=== PATIENT | female | born 1955 | race Caucasian/White ===

== ENCOUNTER 2023-06-01 15:01 | Inpatient (IN) | payer MEDICARE, OTHER, SELFPAY ==
[2023-05-30 15:13] VITALS: BP 182/75
--- NOTE | 2023-05-30 17:20 | ED.GENMED ---
History of Present Illness
General
Chief Complaint: Vascular Access Problem
Source: patient
Exam Limitations: none
Time Seen by Provider: 05/30/23 16:57
Travel History
Have you had any contact with someone who has COVID-19?: No
Do you have any symptoms of coronavirus? Fever > 100 degrees, chills, cough, shortness of breath, sore throat, loss of taste or smell, muscle aches, or headache?: No
History of Present Illness
History of Present Illness:
67-year-old female anticoagulated on Coumadin typically Tuesday dialysis patient. Last dialysis session was . She went Tuesday and the fistula in the arm kept clotting. She was advised to return to the facility today
which she did in the morning and the fistula clotted again. She went to a outpatient facility where they did an angioplasty and sent her back to dialysis unfortunately they were not able to get the fistula to function at that time and she was sent
here for potential temporary catheter placement. She denies chest pain fever shortness of breath. No other complaints at this time
Past History
Past History
ED Past Medical History: Cancer (Kidney cancer), NIDDM (Kidney cyst ) and Other (DVT , DVT, nephrectomy due to kidney cancer)
ED Past Surgical History: Cholecystectomy (Open ) and Other (Left nephrectomy )
Social History
Tobacco: Non-smoker
Alcohol: None
Drug: None
Personal:
Living: with family
Employment: Employed
Family History
Family History: Hypertension
Phy Exam
Physical Exam
Physical Exam:
General: Well-appearing female no acute respiratory distress
HEENT: Normocephalic atraumatic neck is supple
Heart: Regular rate and rhythm no murmurs
Lungs: Clear to auscultation bilaterally no wheezing
Extremities: No cyanosis or edema
Course
Orders/Labs/Results
Orders:
Orders
05/30/23 17:38
Complete Blood Count/With Diff Urgent
Comprehensive Metabolic Panel Urgent
Prothrombin Time Urgent
Abnormal Lab Results
05/30/23
17:38
RBC 3.24 L 10^6/uL
(4.20-5.40)
Hgb 11.3 L g/dL
(12.0-16.0)
Hct 32.9 L %
(37.0-47.0)
MCV 101.5 H fL
(81.0-99.0)
MCH 34.9 H pg
(27.0-31.0)
RDW 15.2 H %
(11.5-14.5)
Absolute Monos (auto) 0.7 H 10^3/uL
(0.1-0.6)
Monocytes % 12.9 H %
(1.7-9.3)
Eosinophils % 6.7 H %
(0-6)
PT 28.7 H Sec
(11.4-14.6)
Carbon Dioxide 19 L mmol/L
(22-30)
BUN 84 H mg/dl
(7-17)
Creatinine 7.0 H* mg/dL
(0.6-1.0)
Glucose 124 H mg/dl
(70-99)
05/30/23 17:38
05/30/23 17:38
Vital Signs
Initial and Last Documented VS:
Initial Vital Signs
Temp Pulse Resp BP Pulse Ox
98.1 F 68 18 182/75 100
05/30/23 15:13 05/30/23 15:13 05/30/23 15:13 05/30/23 15:13 05/30/23 15:13
Last Documented Vital Signs
Temp Pulse Resp BP Pulse Ox
98.1 F 67 20 153/68 97
05/30/23 15:13 05/30/23 18:14 05/30/23 18:14 05/30/23 18:14 05/30/23 18:14
MDM/Problems Addressed
Differential Diagnosis Includes:
Malfunctioning dialysis fistula left upper extremity sent here for catheter placement and dialysis to be performed here. Have labs pending. Contacted interventional radiology. Will wait for labs to return
*Critical Care Note
Total Time (30-74mins, 75-104mins- exclusive of procedures): Not Applicable
Update Note
Update Note:
Discussed case with interventional radiology he prefers to wait till the morning to place temporary dialysis catheter. Potassium today is 4.7 with a creatinine of 7.0. Patient does not appear to be significantly overloaded on exam. Nephrology
made aware and are in agreement with dialysis for tomorrow after catheter placement. Admitted to hospitalist service
ED Attending Note
-
Portions of this chart may have been created with voice recognition software.� Occasional wrong word or��sound alike� substitutions may have occurred due to the inherent limitations of voice recognition software.
Discharge Plan
Departure
Patient Disposition: Admit
Date of Disposition: 05/30/23
Time of Disposition: 18:30
Admit to: Med/Surg
Presentation/result/management discussed w/ accepting MD/DO: Hospitalist
Discharge Problem:
dialysis catheter malfunction
Prescriptions:
No Action
warfarin [Jantoven] 5 MG tablet
5 mg PO MOWEFR
calcitriol 0.25 MCG capsule
0.25 mcg PO DAILY
atorvastatin [Lipitor] 20 mg Tablet
20 mg PO DAILY
warfarin 2.5 mg Tablet
2.5 mg PO SUTUTHSA
Theragen Tablet
1 tab PO DAILY Qty: 0
acetaminophen [Tylenol Extra Strength] 500 mg Tablet
1,000 mg PO TIDPRN PRN (Reason: mild pain)
labetalol 300 mg Tablet
150 mg PO BID
cholecalciferol (vitamin D3) [Vitamin D3] 25 mcg (1,000 unit) Tablet
25 mcg PO DAILY
calcium acetate 667 mg Tablet
2,668 mg PO BID
Referrals:
Sergio Weber MD [Family Provider] -
Interventions
Interventions:
*Risk Screen - Suicide Last Done: 05/30/23 15:13
*General Assessment Last Done: 05/30/23 15:13
*Neglect/Abuse Screening Last Done: 05/30/23 15:13
*ED COVID-19 Vaccine History Last Done: 05/30/23 15:13
[2023-05-30 17:47] LABS: % Basophils 0.7 % (0-2); % Eosinophils 6.7 % (0-6); % Immature Granulocytes 0.2 % (0-0.5); % Lymphocytes 30.9 % (20.5-51.1); % Monocytes 12.9 % (1.7-9.3); % Neutrophils 48.6 % (42.2-75.2); Absolute Eosinophils 0.4 10^3/uL (0-0.7); Absolute Lymphocytes 1.7 10^3/uL (1.2-3.4); Absolute Monocytes 0.7 10^3/uL (0.1-0.6); Absolute Neutrophils 2.7 10^3/uL (1.4-6.5); Hematocrit 32.9 % (37.0-47.0); Hemoglobin 11.3 g/dL (12.0-16.0); Mean Corp Hgb Conc. 34.3 g/dL (33.0-37.0); Mean Corpuscular Hgb 34.9 pg (27.0-31.0); Mean Corpuscular Volume 101.5 fL (81.0-99.0); Mean Platelet Volume 9.2 fL (7.4-10.4); Nucleated Red Blood Cells % 0 %; Platelet Count 201 10^3/uL (130-400); Red Blood Cell Count 3.24 10^6/uL (4.20-5.40); Red Cell Dist. Width 15.2 % (11.5-14.5); White Blood Cell Count 5.6 10^3/uL (4.8-10.8)
[2023-05-30 17:56] LABS: INR 2.72; PT 28.7 Sec (11.4-14.6)
[2023-05-30 18:04] LABS: ALT (SGPT) 18 U/L (0-35); AST (SGOT) 22 U/L (14-36); Albumin 3.7 g/dl (3.5-5.0); Alkaline Phosphatase 82 U/L (38-126); Blood Urea Nitrogen 84 mg/dl (7-17); Calcium 9.6 mg/dl (8.4-10.2); Carbon Dioxide 19 mmol/L (22-30); Glucose 124 mg/dl (70-99); Potassium 4.7 mmol/L (3.5-5.1); Sodium 137 mmol/L (135-145); Total Bilirubin 0.9 mg/dl (0.2-1.3); Total Protein 6.5 g/dl (6.3-8.2); eGFR 5.98
[2023-05-30 18:08] LABS: Chloride 103 mmol/L (98-107)
[2023-05-30 18:14] VITALS: BP 153/68
--- NOTE | 2023-05-30 18:45 | HPS.HSE ---
Addendum entered and electronically signed by Kasia Mendoza DO 05/30/23 19:35:
The patient has been seen and examined, and discussed with Cassi SELBY. I have reviewed the H & P, assessment and plan of care and agree as per below. The patient is stable, no SOB, no CP, no swelling, she is euvolemic.
VSS, AF
Cards no m/r/g, RRR
Fistula no palpable thrill, audible bruit present
Lung CTA b/l no w/r/r
Abd soft, nt/nd
Ext no c/c/e, warm
K 4.7 CO2 19 WBC 5.6
Assessment/Plan of Care
# Nonfunctioning fistula LUE s/p unsuccessful angioplasty for malfunctioning fistula today at [facility]- unable to receive HD today, last HD was
-K is stable
-plan is for perm-a-cath in am, NPO p mn, hold coumadin, repeat INR in am, IR Cx for cath, Nephro Cx for HD tomorrow
# History of end-stage renal disease
-hxt of kidney ca s/p left nephrectomy
-On dialysis Tuesday, , Tuesday since February
-Calcitriol continued, calcium acetate continued
-IR consulted for perma cath as noted, for 05/31/23
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
-Nephrology consulted
Original Note:
Family Physician
-
Family Physician: Sergio Weber
Chief Complaint
-
non functioning fistula
History of Present Illness
67-year-old female with PMH for kidney s/p left nephrectomy, Dm, DVT presented to us with clotted fistula. her last dialysis was on . She was advised to return to the facility today which she did in the morning and the fistula clotted
again.� She went to a outpatient facility where they did an angioplasty and sent her back to dialysis unfortunately they were not able to get the fistula to function at that time and she was sent here for potential temporary catheter placement.� She
denies chest pain fever shortness of breath.� denied fever, chills. Denied SHANE, dizzy or syncopal episode.denied abdominal pain, n,v, d. denied dysuria or hematuria.
admitting for further management.
Medical History
Past Medical History
Past Medical History: Reports Other
Additional Past Medical History:
kidney cancer
DM
DVT
Past Surgical History: Reports Other
Additional Past Surgical History:
left nephrectomy
Social History
Tobacco: Non-smoker
Alcohol: None
Drug: None
Family History
Family History: Not pertinent
Allergies / Home Medications
Allergies reflects when Allergies were last updated in [facility].
Home Medications with original date entered in [facility]
Allergy/Medication List:
Allergies
Allergy/AdvReac Type Severity Reaction Status Date / Time
hydralazine Allergy Severe Swelling Verified 05/30/23 15:15
Sulfa (Sulfonamide Allergy Hives Verified 05/30/23 15:15
Antibiotics)
trimethoprim Allergy Unknown Verified 05/30/23 15:15
Home Medications
warfarin 5 mg tablet (Jantoven) 5 mg PO MOWEFR 09/30/15
calcitriol 0.25 mcg capsule 0.25 mcg PO DAILY 05/29/21
acetaminophen 500 mg tablet (Tylenol Extra Strength) 1,000 mg PO TIDPRN PRN mild pain 03/24/22
atorvastatin 20 mg tablet (Lipitor) 20 mg PO DAILY 03/24/22
labetalol 300 mg tablet 150 mg PO BID 03/24/22
therapeutic multivitamin 1 tab PO DAILY ##0 03/24/22
warfarin 2.5 mg tablet 2.5 mg PO SUTUTHSA 03/24/22
calcium acetate 667 mg tablet 2,668 mg PO BID 05/30/23
cholecalciferol (vitamin D3) 25 mcg (1,000 unit) tablet (Vitamin D3) 25 mcg PO DAILY 05/30/23
Review of Systems
-
Constitutional: Reports No Symptoms
EENT: Reports No Symptoms
Respiratory: Reports No Symptoms
Cardiac: Reports No Symptoms
Abdomen/GI: Reports No Symptoms
: Reports No Symptoms
Musculoskeletal: Reports No Symptoms
Skin: Reports No Symptoms
Neurological: Reports No Symptoms
Endocrine: Reports No Symptoms
Hematologic/Lymphatic: Reports No Symptoms and Other
Psych: Reports No Symptoms
Physical Exam
Vital Signs
Vital Signs
Temp Pulse Resp BP Pulse Ox
98.1 F 67 20 153/68 97
05/30/23 15:13 05/30/23 18:14 05/30/23 18:14 05/30/23 18:14 05/30/23 18:14
Physical Exam
General: Well Developed, Well Nourished and No Apparent Distress
HEENT: NormoCephalic, Moist mucous membranes and Atraumatic
Respiratory: Clear
Cardiac: S1/S2 and Regular Rhythm; No Murmur or Rub
GI: Soft, Non Tender, Non Distended and Normal Bowel Sounds; No Organomegaly
Rectal: Deferred by Provider
Musculoskeletal: No Clubbing, No Cyanosis and No Edema
Skin: No Rash
Neuro: AO x 3 and Nonfocal/grossly intact
Psych: Calm
Laboratory Results
-
05/30/23 17:38
05/30/23 17:38
Laboratory Results
PT 28.7 Sec (11.4-14.6) H 05/30/23 17:38
INR 2.72 05/30/23 17:38
Total Bilirubin 0.9 mg/dl (0.2-1.3) 05/30/23 17:38
AST 22 U/L (14-36) 05/30/23 17:38
ALT 18 U/L (0-35) 05/30/23 17:38
Alkaline Phosphatase 82 U/L (38-126) 05/30/23 17:38
Data Reviewed
-
Lab Data: Labs Reviewed by me
Impression/Plan
-
# Nonfunctioning fistula
# History of end-stage renal disease
-hxt of kidney ca s/p left nephrectomy
-On dialysis Tuesday, , Tuesday
-Calcitriol continued, calcium acetate continued
-IR consulted for perma cath
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
-Nephrology consulted
# Anemia of chronic disease
-Hemoglobin 11.3
-No active bleeding
-Continue to monitor
# Hyperlipidemia
-Statin
# Essential hypertension
-Labetalol continued
# History of DVT
-INR 2.7
-hold Coumadin
#DVT prophylaxis
-scd
#CODE status
-full code
[2023-05-30 20:45] VITALS: BP 184/68; BMI 34.3
[2023-05-30] MEDS: TRANDATE 150 MG PO (20:56)
[2023-05-30] MEDS: PHOSLO 2668 MG PO (20:57)
[2023-05-30 23:05] VITALS: BP 174/75
--- NOTE | 2023-05-31 04:54 | PTCARENOTE ---
Received pt from the ED, ambulated steadily through the room to hospital bed. AAOx3, pt offers no complaints. LUE restriction secondary to AV fistula; + bruit, + thrill. Assessment as documented. POC d/w pt, NPO after midnight for temporary dialysis
cath placement, dialysis tx to follow. Pt agreeable to plan, oriented to unit and call solorio, resting comfortably at this time.
[2023-05-31 05:08] LABS: Hematocrit 30.1 % (37.0-47.0); Hemoglobin 10.2 g/dL (12.0-16.0); Mean Corp Hgb Conc. 33.9 g/dL (33.0-37.0); Mean Corpuscular Hgb 34.9 pg (27.0-31.0); Mean Corpuscular Volume 103.1 fL (81.0-99.0); Mean Platelet Volume 9.5 fL (7.4-10.4); Platelet Count 175 10^3/uL (130-400); Red Blood Cell Count 2.92 10^6/uL (4.20-5.40); Red Cell Dist. Width 14.7 % (11.5-14.5); White Blood Cell Count 5.4 10^3/uL (4.8-10.8)
[2023-05-31 05:15] LABS: INR 2.93; PT 30.5 Sec (11.4-14.6)
[2023-05-31 05:53] LABS: Blood Urea Nitrogen 82 mg/dl (7-17); Calcium 9.4 mg/dl (8.4-10.2); Carbon Dioxide 23 mmol/L (22-30); Chloride 107 mmol/L (98-107); Estimated Creatinine Clearance 8 ml/min; Glucose 92 mg/dl (70-99); Potassium 4.5 mmol/L (3.5-5.1); Sodium 136 mmol/L (135-145); eGFR 5.33
[2023-05-31 06:00] VITALS: BMI 34.4
[2023-05-31 07:25] VITALS: BP 147/67
[2023-05-31] MEDS: PHOSLO 2668 MG PO ×2 (09:02→18:20)
[2023-05-31] MEDS: LIPITOR 20 MG PO (09:02)
[2023-05-31] MEDS: VITAMIN D3 (cholecalciferol) 25 MCG PO (09:03)
[2023-05-31] MEDS: ROCALTROL 0.25 MCG PO (09:03)
[2023-05-31] MEDS: TRANDATE 150 MG PO ×2 (09:03→20:57)
[2023-05-31 09:55] VITALS: BP 157/56; BP_SYST 65
[2023-05-31 10:42] VITALS: BP 155/58; BP_SYST 69
--- NOTE | 2023-05-31 11:36 | CM ---
Reviewed the chart notes and spoke with the patient at the bedside. The patient is being admitted under observational status. The FRANCO letter was provided and explained. The patient had no questions with regards to the letter.
The patient resides with her spouse in a one story home with two steps to enter. The patient reports no DME/VN/SNF in the past. The patient confirmed her pharmacy of choice is the [facility] [address] [place] [address]. The patient receives HD at the
[facility]. The patient anticipates being discharged to home when medically stable. CM continues to be available to patient/family and is monitoring medical plan for needs at discharge.
Plan: Discharge to home when medically stable.
--- NOTE | 2023-05-31 12:13 | W.PN.HOSP.TC ---
Today's Communication/Plan
-
HD today
Heparin ggt
Assessment / Plan
Assessment / Plan
Physical Exam
General: Well Developed, Well Nourished and No Apparent Distress
HEENT: NormoCephalic, Moist mucous membranes and Atraumatic
Respiratory: Clear
Cardiac: S1/S2 and Regular Rhythm; No Murmur or Rub
GI: Soft, Non Tender, Non Distended and Normal Bowel Sounds; No Organomegaly
Rectal: Deferred by Provider
Musculoskeletal: No Clubbing, No Cyanosis and No Edema
Skin: No Rash
Neuro: AO x 3 and Nonfocal/grossly intact
Psych: Calm
# Nonfunctioning fistula
# History of end-stage renal disease
-hxt of kidney ca s/p left nephrectomy
-On dialysis Tuesday, , Tuesday
-Calcitriol continued, calcium acetate continued
-permacath today
-HD today
-Nephrology consulted
# Anemia of chronic disease
-Hemoglobin 11.3
-No active bleeding
-Continue to monitor
# Hyperlipidemia
-Statin
# Essential hypertension
-Labetalol continued
# History of DVT
-INR 2.7
-hold Coumadin, - start hep ggt until tunnel conversion
#DVT prophylaxis
-hep ggt
#CODE status
-full code
Anticipated Discharge: 24 - 48 hours
Subjective/Interval History
-
Date of Service: May 31, 2023
No acute events, plan for permacath this morning
Objective Data
-
Labs:
Laboratory Results
05/31/23
04:34
WBC 5.4
Hgb 10.2 L
Hct 30.1 L
Plt Count 175
PT 30.5 H
INR 2.93
Sodium 136
Potassium 4.5
Chloride 107
Carbon Dioxide 23
BUN 82 H
Creatinine 7.7 H*
Glucose 92
Calcium 9.4
Vital Signs:
Vital Signs
Temp Pulse Resp BP Pulse Ox
97.6 F 69 18 155/58 96
05/31/23 09:55 05/31/23 10:42 05/31/23 10:42 05/31/23 10:42 05/31/23 10:42
I&O
05/30/23 05/31/23 06/01/23
06:59 06:59 06:59
Intake Total 240 / 240
Balance 240 / 240
Review of Systems
-
History Source: Patient
All other systems: Not reviewed unless documented
Data Reviewed
-
Diagnostic Radiology: Image personally visualized and interpreted and Report Reviewed by me
Ultrasound: Image personally visualized and interpreted and Report Reviewed by me
Labs: Labs Reviewed by me
[2023-05-31 14:23] LABS: Hematocrit 32.3 % (37.0-47.0); Hemoglobin 11.1 g/dL (12.0-16.0); Mean Corp Hgb Conc. 34.4 g/dL (33.0-37.0); Mean Corpuscular Hgb 34.8 pg (27.0-31.0); Mean Corpuscular Volume 101.3 fL (81.0-99.0); Mean Platelet Volume 9.4 fL (7.4-10.4); Platelet Count 197 10^3/uL (130-400); Red Blood Cell Count 3.19 10^6/uL (4.20-5.40); Red Cell Dist. Width 14.6 % (11.5-14.5); White Blood Cell Count 5.4 10^3/uL (4.8-10.8)
[2023-05-31 14:58] LABS: APTT 54.6 Sec (23.4-35.0)
--- NOTE | 2023-05-31 15:07 | W.CON.NEPH ---
Consultation
-
Date/Time Consultation Requested: 05/30 20:30
Date/Time Consultation Performed: 05/31 3:07PM
Requesting Provider: Sathish Ye
Performing Provider: Crystal Merino
Reason for Consultation: ESRD on HD
Medical History
-
Chief Complaint: ESRD on HD
History of Present Illness:
Ms. De Jesus is a 67YOF with PMH of RCC s/p L nephrectomy in 1998, cholecystectomy, HTN, T2DM who presents to the hospital in the setting of missed dialysis due to clotted fistula. Briefly, the patient states that she was last able to be dialyzed on
. She tried on Tuesday, but fistula had clotted. The patient was told to come back on Tuesday, had another failed attempt and went to the outpatient vascular center where an angioplasty was performed. Unfortunately, the fistula was still not
functional and the patient was instructed to present to the ED for further management. Today, the patient underwent temporary line placement (TDC not possible because INR >2) and is doing well on HD. She denies SOB, swelling, fevers, chills,
syncope, abdominal pain. States she makes some urine, but very minimal. Feels like her normal self.
Past Medical History
RCC s/p L nephrectomy
HTN
T2DM
DVT
Past Medical History: Cancer, HTN and IDDM
Past Surgical History: Cholecystectomy and Other (nephrectomy)
Social History
Tobacco: Non-Smoker
Alcohol: None
Drug: None
Family History
Family History: Not Pertinent
Allergies / Home Medications
Allergy/AdvReac Type Severity Reaction Status Date / Time
hydralazine Allergy Severe Swelling Verified 05/30/23 15:15
Sulfa (Sulfonamide Allergy Hives Verified 05/30/23 15:15
Antibiotics)
trimethoprim Allergy Unknown Verified 05/30/23 15:15
Medication Instructions Recorded Confirmed Type
warfarin 5 mg tablet (Jantoven) 5 mg PO MOWEFR Blood Clot 09/30/15 05/30/23 History
Prevention/Tx
calcitriol 0.25 mcg capsule 0.25 mcg PO DAILY Kidney Disease 05/29/21 05/30/23 History
acetaminophen 500 mg tablet 1,000 mg PO TIDPRN PRN mild pain 03/24/22 05/30/23 History
(Tylenol Extra Strength)
atorvastatin 20 mg tablet (Lipitor) 20 mg PO DAILY High Cholesterol 03/24/22 05/30/23 History
labetalol 300 mg tablet 150 mg PO BID Blood Pressure 03/24/22 05/30/23 History
therapeutic multivitamin 1 tab PO DAILY Supplement ##0 03/24/22 05/30/23 History
warfarin 2.5 mg tablet 2.5 mg PO SUTUTHSA Blood Clot 03/24/22 05/30/23 History
Prevention/Tx
calcium acetate 667 mg tablet 2,668 mg PO BID Supplement 05/30/23 05/30/23 History
cholecalciferol (vitamin D3) 25 25 mcg PO DAILY Supplement 05/30/23 05/30/23 History
mcg (1,000 unit) tablet (Vitamin
D3)
Review of Systems
-
History Source: Patient
All other systems: Negative unless noted
Constitutional: No Symptoms
EENT: No Symptoms
Respiratory: No Symptoms
Cardiac: No Symptoms
Abdomen/GI: No Symptoms
: No Symptoms
Musculoskeletal: No Symptoms
Skin: No Symptoms
Neurological: No Symptoms
Endocrine: No Symptoms
Hematologic/Lymphatic: No Symptoms
Physical Exam
Vital Signs
Vital Signs
Temp Pulse Resp BP Pulse Ox
97.6 F 69 18 155/58 96
05/31/23 09:55 05/31/23 10:42 05/31/23 10:42 05/31/23 10:42 05/31/23 10:42
Lab Results
WBC 5.4 10^3/uL (4.8-10.8) 05/31/23 14:00
RBC 3.19 10^6/uL (4.20-5.40) L 05/31/23 14:00
Hgb 11.1 g/dL (12.0-16.0) L 05/31/23 14:00
Hct 32.3 % (37.0-47.0) L 05/31/23 14:00
Plt Count 197 10^3/uL (130-400) 05/31/23 14:00
Sodium 136 mmol/L (135-145) 05/31/23 04:34
Potassium 4.5 mmol/L (3.5-5.1) 05/31/23 04:34
Chloride 107 mmol/L (98-107) 05/31/23 04:34
Carbon Dioxide 23 mmol/L (22-30) 05/31/23 04:34
BUN 82 mg/dl (7-17) H 05/31/23 04:34
Creatinine 7.7 mg/dL (0.6-1.0) H* 05/31/23 04:34
eGFR 5.33 05/31/23 04:34
Glucose 92 mg/dl (70-99) 05/31/23 04:34
Calcium 9.4 mg/dl (8.4-10.2) 05/31/23 04:34
Albumin 3.7 g/dl (3.5-5.0) 05/30/23 17:38
Physical Exam
General: AOx3
HEENT: PERRL and EOMI
Respiratory: Clear
Cardiac: S1/S2
Breast: Deferred by me
Abdomen: Soft, Nontender and Nondistended
Rectal: Deferred by Provider
Genito-urinary: No Costovertebral Tender
Musculoskeletal: No Edema
Skin: No Rash, Warm and Dry
Neuro: Nonfocal/Grossly Intact
Hematologic/Lymphatic: No Cervical Lymphadenopathy
Psych: Mood/afflect pleasant
Assessment/Plan
-
Assessment:
LUE AVF, clotted
ESRD on HD TThS
Anemia
HTN
DVT
Plan:
- plan for HD today per TThS schedule, next on
- temporary line placed in the setting of clotted fistula, dialyzed with line today. did well no issues
- holding coumadin to place a TDC, heparin gtt bridge in place
- noted to be slightly hypertensive, c/w labetalol and monitor
Data Reviewed
-
Radiology: Image Personally Visualized and interpreted
Labs: Labs Reviewed by me
Old Records: Reviewed
[2023-05-31 15:15] VITALS: BP 117/65
[2023-05-31] MEDS: HEPARIN 25000 UNITS/250 ML IV (15:40)
--- NOTE | 2023-05-31 15:49 | W.PN.NEPH.HD ---
Assessment
-
- tearful on dialysis due to concern about clotted fistula
- blood pressures stable
Progress Note - Hemodialysis
-
Date of Service: May 31, 2023
Duration: 30 minutes and 3 hours
Potassium Bath: 3
Calcium Bath: 2.5
Opti-Dialyzer: 160
Ultrafiltration: Other
Blood Flow: 400
Dialysate Flow: 600
Heparin: none
EPO: none
[2023-05-31] MEDS: TYLENOL 650 MG PO (20:56)
[2023-05-31 22:18] LABS: APTT > 200 Sec (23.4-35.0)
[2023-05-31 23:25] VITALS: BP 104/57
--- NOTE | 2023-05-31 23:32 | PTCARENOTE ---
Pt's PTT resulted >200, Heparin gtt placed on standby per protocol, covering DOOR CLOSER notified, no new orders at this time. Pt resting comfortably in recliner chair.
[2023-06-01 06:00] VITALS: BMI 33.4
[2023-06-01 07:40] VITALS: BP 168/82
[2023-06-01 08:19] LABS: Hematocrit 31.2 % (37.0-47.0); Hemoglobin 10.6 g/dL (12.0-16.0); Mean Corpuscular Hgb 33.9 pg (27.0-31.0); Mean Corpuscular Volume 99.7 fL (81.0-99.0); Mean Platelet Volume 9.9 fL (7.4-10.4); Platelet Count 169 10^3/uL (130-400); Red Blood Cell Count 3.13 10^6/uL (4.20-5.40); Red Cell Dist. Width 14.6 % (11.5-14.5); White Blood Cell Count 5.3 10^3/uL (4.8-10.8)
[2023-06-01 08:25] LABS: APTT 75.4 Sec (23.4-35.0)
[2023-06-01 08:32] VITALS: BP 168/82
[2023-06-01] MEDS: PHOSLO 2668 MG PO ×2 (08:48→17:50)
[2023-06-01] MEDS: ROCALTROL 0.25 MCG PO (08:48)
[2023-06-01] MEDS: VITAMIN D3 (cholecalciferol) 25 MCG PO (08:48)
[2023-06-01] MEDS: TRANDATE 150 MG PO ×2 (08:48→20:34)
[2023-06-01] MEDS: LIPITOR 20 MG PO (08:48)
--- NOTE | 2023-06-01 09:56 | W.PN.NEPH.PH ---
Today's Communication / Plan
-
HD tomorrow
follow up INR
Assessment/Plan
-
Assessment:
LUE AVF, clotted
ESRD on HD [facility]
Anemia
HTN
DVT
Plan:
- plan for HD tomorrow per [facility]Th[facility] schedule,
-recheck INR, place tunneled HD catheter once INR less then 2
- temporary line placed in the setting of clotted fistula
- holding coumadin to place a TDC, heparin gtt bridge in place
- noted to be slightly hypertensive, c/w labetalol and monitor
-
-
Date of Service: June 01, 2023
CC / HPI / ROS
-
Chief Complaint:
ESRD
History of Present Illness:
ESRD TTS
hemodynamically stable
heparin gtt
Review of Systems:
no chest pain or sob
Labs
-
Labs:
WBC 5.3 10^3/uL (4.8-10.8) 06/01/23 07:33
RBC 3.13 10^6/uL (4.20-5.40) L 06/01/23 07:33
Hgb 10.6 g/dL (12.0-16.0) L 06/01/23 07:33
Hct 31.2 % (37.0-47.0) L 06/01/23 07:33
Plt Count 169 10^3/uL (130-400) 06/01/23 07:33
eGFR 5.33 05/31/23 04:34
Physical Exam
-
Vital Signs:
Vital Signs
Temp Pulse Resp BP Pulse Ox
97.9 F 65 18 168/82 96
06/01/23 07:40 06/01/23 08:48 06/01/23 07:40 06/01/23 08:48 06/01/23 07:40
Cardiovascular:: Regular rate and rhythm
Respiratory:: Bilateral: CTA
Lung Excursion:: Normal
Abdomen:: Nontender and Soft
Bowel Sounds:: Normal
Extremity Edema:: +1: Bilateral:
Humphrey Catheter: No
[2023-06-01 10:47] LABS: INR 2.22; PT 24.9 Sec (11.4-14.6)
[2023-06-01 10:52] LABS: ALT (SGPT) 18 U/L (0-35); AST (SGOT) 24 U/L (14-36); Albumin 3.3 g/dl (3.5-5.0); Alkaline Phosphatase 99 U/L (38-126); Blood Urea Nitrogen 41 mg/dl (7-17); Calcium 9.2 mg/dl (8.4-10.2); Carbon Dioxide 23 mmol/L (22-30); Chloride 101 mmol/L (98-107); Estimated Creatinine Clearance 14 ml/min; Glucose 106 mg/dl (70-99); Phosphorus 4.4 mg/dl (2.5-4.5); Potassium 3.8 mmol/L (3.5-5.1); Sodium 131 mmol/L (135-145); eGFR 11.03
[2023-06-01] MEDS: HEPARIN 25000 UNITS/250 ML IV (12:09)
--- NOTE | 2023-06-01 14:35 | W.PN.HOSP.TC ---
Today's Communication/Plan
-
Follow INR
HD tomorrow
Tunneled cath once INR less than 2
Heparin drip
Assessment / Plan
Assessment / Plan
Physical Exam
General: Well Developed, Well Nourished and No Apparent Distress
HEENT: NormoCephalic, Moist mucous membranes and Atraumatic
Respiratory: Clear
Cardiac: S1/S2 and Regular Rhythm; No Murmur or Rub
GI: Soft, Non Tender, Non Distended and Normal Bowel Sounds; No Organomegaly
Rectal: Deferred by Provider
Musculoskeletal: No Clubbing, No Cyanosis and No Edema
Skin: No Rash
Neuro: AO x 3 and Nonfocal/grossly intact
Psych: Calm
# Nonfunctioning fistula
# History of end-stage renal disease
-hxt of kidney ca s/p left nephrectomy
-On dialysis Tuesday, , Tuesday
-Calcitriol continued, calcium acetate continued
-permacath 05/31
-HD 05/31
HD tomorrow
� Follow INR, plan for tunneled cath once INR less than 2
-Nephrology consulted
# Anemia of chronic disease
-Hemoglobin 11.3
-No active bleeding
-Continue to monitor
# Hyperlipidemia
-Statin
# Essential hypertension
-Labetalol continued
# History of DVT
Follow INR
-hold Coumadin, - start hep ggt until tunnel conversion
#DVT prophylaxis
-hep ggt
#CODE status
-full code
Anticipated Discharge: > 48 hours
Subjective/Interval History
-
Date of Service: June 01, 2023
Status post HD after permacath placed yesterday
Objective Data
-
Labs:
Laboratory Results
06/01/23 06/01/23 06/01/23
07:33 10:22 14:30
WBC 5.3
Hgb 10.6 L
Hct 31.2 L
Plt Count 169
PT 24.9 H
INR 2.22
APTT 75.4 H Pending
Sodium 131 L
Potassium 3.8
Chloride 101
Carbon Dioxide 23
BUN 41 H
Creatinine 4.2 H*
Glucose 106 H
Calcium 9.2
Total Bilirubin 1.0
AST 24
ALT 18
Alkaline Phosphatase 99
Vital Signs:
Vital Signs
Temp Pulse Resp BP Pulse Ox
97.9 F 65 18 168/82 96
06/01/23 07:40 06/01/23 08:48 06/01/23 07:40 06/01/23 08:48 06/01/23 07:40
I&O
05/31/23 06/01/23 06/02/23
06:59 06:59 06:59
Intake Total 240 / 240
Balance 240 / 240
Review of Systems
-
History Source: Patient
All other systems: Not reviewed unless documented
Data Reviewed
-
Diagnostic Radiology: Image personally visualized and interpreted and Report Reviewed by me
Ultrasound: Image personally visualized and interpreted and Report Reviewed by me
Labs: Labs Reviewed by me
[2023-06-01 15:25] LABS: APTT 92.2 Sec (23.4-35.0)
--- NOTE | 2023-06-01 15:47 | CM ---
Addendum entered by Summer Cooper RN 06/01/23 16:00:
IMM signed and placed on chart.
Original Note:
Reviewed the chart notes. Per notes, tunneled cath once INR less than 2. Patient informed of inpatient status. CM continues to be available to patient/family and is monitoring medical plan for needs at discharge.
Plan: Discharge to home when medically stable.
[2023-06-01 16:14] VITALS: BP 107/58
[2023-06-01] MEDS: TYLENOL 650 MG PO (20:34)
[2023-06-01 22:55] LABS: APTT 113.6 Sec (23.4-35.0)
[2023-06-01 23:07] VITALS: BP 132/55
[2023-06-02 05:05] LABS: Hematocrit 30.3 % (37.0-47.0); Hemoglobin 10.2 g/dL (12.0-16.0); Mean Corp Hgb Conc. 33.7 g/dL (33.0-37.0); Mean Corpuscular Hgb 33.9 pg (27.0-31.0); Mean Corpuscular Volume 100.7 fL (81.0-99.0); Mean Platelet Volume 9.8 fL (7.4-10.4); Platelet Count 165 10^3/uL (130-400); Red Blood Cell Count 3.01 10^6/uL (4.20-5.40); Red Cell Dist. Width 14.6 % (11.5-14.5); White Blood Cell Count 5.3 10^3/uL (4.8-10.8)
[2023-06-02 05:09] LABS: APTT 96.9 Sec (23.4-35.0)
[2023-06-02 05:53] LABS: ALT (SGPT) 15 U/L (0-35); AST (SGOT) 20 U/L (14-36); Albumin 3.1 g/dl (3.5-5.0); Alkaline Phosphatase 79 U/L (38-126); Blood Urea Nitrogen 58 mg/dl (7-17); Calcium 9.8 mg/dl (8.4-10.2); Carbon Dioxide 24 mmol/L (22-30); Chloride 97 mmol/L (98-107); Estimated Creatinine Clearance 10 ml/min; Glucose 104 mg/dl (70-99); Magnesium 2.1 mg/dl (1.6-2.3); Potassium 4.1 mmol/L (3.5-5.1); Sodium 132 mmol/L (135-145); Total Protein 5.6 g/dl (6.3-8.2); eGFR 7.81
[2023-06-02 06:00] VITALS: BMI 33.7
[2023-06-02 07:25] VITALS: BP 100/47
[2023-06-02 08:17] LABS: INR 1.71; PT 20.2 Sec (11.4-14.6)
[2023-06-02] MEDS: PHOSLO 2668 MG PO ×2 (08:41→17:25)
[2023-06-02] MEDS: ROCALTROL 0.25 MCG PO (08:41)
[2023-06-02] MEDS: LIPITOR 20 MG PO (08:41)
[2023-06-02] MEDS: VITAMIN D3 (cholecalciferol) 25 MCG PO (08:41)
--- NOTE | 2023-06-02 09:16 | W.PN.NEPH.HD ---
Assessment
-
Patient seen on HD
sbp ~118 at current u/t
inr down to 1.7
needs to have tunneled HD catheter placed
will consult IR
heparin gtt will need to be adjusted prior to catheter placement
Progress Note - Hemodialysis
-
Date of Service: June 02, 2023
Duration: 30 minutes and 3 hours
Potassium Bath: 3
Calcium Bath: 2.5
Opti-Dialyzer: 160
Ultrafiltration: Other (1kg)
Blood Flow: 400
Dialysate Flow: 600
Heparin: gtt
EPO: 4000
[2023-06-02] MEDS: RETACRIT 4000 UNITS IV (10:08)
[2023-06-02] MEDS: MANNITOL 12.5 GRAMS IV (10:34)
--- NOTE | 2023-06-02 11:28 | CM ---
Reviewed the chart notes. Patient currently on HD. Patient waiting to have a tunneled HD cath placed. CM continues to be available to patient/family and is monitoring medical plan for needs at discharge.
Plan: Discharge to home when medically stable.
--- NOTE | 2023-06-02 11:28 | CON.VAS ---
Consultation
Consultation Request
Performing Provider: Jd
Reason for Consultation: Dysfunctional fistula
Medical History
-
Chief Complaint: Left arm swelling
History of Present Illness:
67-year-old female with past medical history of kidney cancer status post left nephrectomy, end-stage renal disease status post left upper extremity fistula creation by Dr. Miles in March. Patient presented to the ER yesterday for left upper
extremity swelling at AV fistula site. Patient states her dialysis center felt her fistula was not functioning correctly and sent her to the access center. On Tuesday at the access center, they did a balloon angioplasty of the fistula and sent her
back to her HD center for dialysis. Patient states the fistula did not work after the procedure. Her left upper extremity has been a bit swollen and tender since then. She denies pain in the hand, numbness, tingling, or decreased
mobility/sensation.
Since arriving to the hospital patient had a temporary catheter placed for dialysis. Patient seen at bedside this morning with Dr. Miles while on HD. Patient denies any other complaints. Left hand is warm and pink. Left upper extremity is
ecchymotic, soft. Fistula thrill slightly aneurysmal proximal outflow. Easily palpable radial pulse.
Vascular consult to evaluate fistula.
Past Medical History
Past Medical History: Cancer (kidney), NIDDM and Other (DVT)
Past Surgical History: Other ( left nephrectomy)
Social History
Tobacco: Non-Smoker
Alcohol: None
Drug: None
Family History
Family History: Reviewed & Not Pertinent
Allergies / Home Medications
Allergy/AdvReac Type Severity Reaction Status Date / Time
hydralazine Allergy Severe Swelling Verified 05/30/23 15:15
Sulfa (Sulfonamide Allergy Hives Verified 05/30/23 15:15
Antibiotics)
trimethoprim Allergy Unknown Verified 05/30/23 15:15
Medication Instructions Recorded Confirmed Type
warfarin 5 mg tablet (Jantoven) 5 mg PO MOWEFR Blood Clot 09/30/15 05/30/23 History
Prevention/Tx
calcitriol 0.25 mcg capsule 0.25 mcg PO DAILY Kidney Disease 05/29/21 05/30/23 History
acetaminophen 500 mg tablet 1,000 mg PO TIDPRN PRN mild pain 03/24/22 05/30/23 History
(Tylenol Extra Strength)
atorvastatin 20 mg tablet (Lipitor) 20 mg PO DAILY High Cholesterol 03/24/22 05/30/23 History
labetalol 300 mg tablet 150 mg PO BID Blood Pressure 03/24/22 05/30/23 History
therapeutic multivitamin 1 tab PO DAILY Supplement ##0 03/24/22 05/30/23 History
warfarin 2.5 mg tablet 2.5 mg PO SUTUTHSA Blood Clot 03/24/22 05/30/23 History
Prevention/Tx
calcium acetate 667 mg tablet 2,668 mg PO BID Supplement 05/30/23 05/30/23 History
cholecalciferol (vitamin D3) 25 25 mcg PO DAILY Supplement 05/30/23 05/30/23 History
mcg (1,000 unit) tablet (Vitamin
D3)
Review of Systems
-
History Source: Patient
All other systems: Negative unless noted
Constitutional: Reports No Symptoms
EENT: Reports No Symptoms
Respiratory: Reports No Symptoms
Cardiac: Reports No Symptoms
Abdomen/GI: Reports No Symptoms
: Reports No Symptoms
Musculoskeletal: Reports Edema
Skin: Reports No Symptoms
Neurological: Reports No Symptoms
Endocrine: Reports No Symptoms
Physical Exam
Vital Signs
Temp Pulse Resp BP Pulse Ox
97.3 F 63 14 100/47 96
06/02/23 07:25 06/02/23 07:25 06/02/23 07:25 06/02/23 07:25 06/02/23 08:00
Lab Results
06/02/23 04:33
06/02/23 04:33
Physical Exam
General: No Apparent Distress
HEENT: Normocephalic and Atraumatic
Respiratory: Non Labored Respirations
Cardiac: Negative JVD
GI: Soft and Non Tender
Musculoskeletal: No Clubbing, No Cyanosis and Edema (+1 LUE)
Skin: Warm and Other (Left upper extremity ecchymosis)
Neuro: Awake, Alert and Oriented
Psych: Calm
Assessment / Plan
-
Plan:
-Fistula US
-Rest fistula, IR for tunneled cath
-Follow up in Vasc office with Dr Miles in 2-4 weeks to plan for fistula salvage
Data Reviewed
-
Labs: Labs Reviewed by me
--- NOTE | 2023-06-02 11:31 | W.PN.UPDATE ---
Update Note
Progress Note Update
Seen and evaluated with LAMONT Vazquez. Full consultation to follow. 67-year-old female known to me status post left brachiocephalic arteriovenous fistula creation by me in 2021. Had a working AV fistula (on hemodialysis). Subsequently recently had
some issues and was referred not back to me but to another outpatient dialysis access center. Underwent some sort of procedure or possible angioplasty per patient. Was referred back to dialysis and had infiltration of the access. Patient
currently seen receiving hemodialysis via temporary dialysis catheter right IJ.
On exam/left upper extremity fistula has a thrill slightly aneurysmal proximal outflow. In the more proximal to mid upper arm there is moderate infiltration/hematoma. The arm is soft. No palpable/pulsatile mass. 1+/2+ radial pulse palpable
distally. Hand is pink and warm.
Plan/ ESRD on HD with infiltration of AV access. At this point would recommend resting the access. Transition temporary catheter to tunneled dialysis catheter. Rest fistula for 2 to 4 weeks and then she can see me in the office at which time I
can then attempt likely repeat fistulogram or surgical revision as needed to try to maintain patency of the access and functionality. If unable to do so, then we will consider new access creation but hopefully we can salvage this one. In addition
in the meanwhile would obtain fistula ultrasound while she is here. We will order that. I will sign off. Please call with questions. F/u in office in 2-4weeks.
[2023-06-02 11:57] LABS: APTT 86.8 Sec (23.4-35.0)
--- NOTE | 2023-06-02 13:18 | W.PN.HOSP.TC ---
Addendum entered and electronically signed by Rogelio Wells MD 06/02/23 13:29:
Hyponatremia
� Monitor with dialysis
Original Note:
Today's Communication/Plan
-
Tunneled cath today
Vascular consulted
Tentative restart Coumadin tomorrow
Assessment / Plan
Assessment / Plan
Physical Exam
General: Well Developed, Well Nourished and No Apparent Distress
HEENT: NormoCephalic, Moist mucous membranes and Atraumatic
Respiratory: Clear
Cardiac: S1/S2 and Regular Rhythm; No Murmur or Rub
GI: Soft, Non Tender, Non Distended and Normal Bowel Sounds; No Organomegaly
Rectal: Deferred by Provider
Musculoskeletal: No Clubbing, No Cyanosis and No Edema
Skin: No Rash
Neuro: AO x 3 and Nonfocal/grossly intact
Psych: Calm
# Nonfunctioning fistula
# History of end-stage renal disease
-hxt of kidney ca s/p left nephrectomy
-On dialysis Tuesday, , Tuesday
-Calcitriol continued, calcium acetate continued
-permacath 05/31; tunneled catheter today 06/02 now the INR less than 2
-HD today
-vascular surgery consulted - will see in 2-4 weeks for next steps including repeat fistulogram or surgical revision; Rest fistula for 2-4 weeks
-Nephrology consulted
# Anemia of chronic disease
-Hemoglobin 11.3
-No active bleeding
-Continue to monitor
# Hyperlipidemia
-Statin
# Essential hypertension
-Labetalol continued
# History of DVT
-hold Coumadin, - start hep ggt until tunnel conversion
� Can restart Coumadin tomorrow
#DVT prophylaxis
-hep ggt
#CODE status
-full code
Anticipated Discharge: Within 24 hours
Subjective/Interval History
-
Date of Service: June 02, 2023
No acute events, HD today
Objective Data
-
Labs:
Laboratory Results
06/02/23 06/02/23 06/02/23
04:33 07:40 11:32
WBC 5.3
Hgb 10.2 L
Hct 30.3 L
Plt Count 165
PT 20.2 H
INR 1.71
APTT 96.9 H 86.8 H
Sodium 132 L
Potassium 4.1
Chloride 97 L
Carbon Dioxide 24
BUN 58 H
Creatinine 5.6 H*
Glucose 104 H
Calcium 9.8
Total Bilirubin 1.0
AST 20
ALT 15
Alkaline Phosphatase 79
Vital Signs:
Vital Signs
Temp Pulse Resp BP Pulse Ox
97.3 F 63 14 100/47 96
06/02/23 07:25 06/02/23 07:25 06/02/23 07:25 06/02/23 07:25 06/02/23 08:00
I&O
06/01/23 06/02/23 06/03/23
06:59 06:59 06:59
Intake Total 940 / 940
Balance 940 / 940
Review of Systems
-
History Source: Patient
All other systems: Not reviewed unless documented
Data Reviewed
-
Diagnostic Radiology: Image personally visualized and interpreted and Report Reviewed by me
Ultrasound: Image personally visualized and interpreted and Report Reviewed by me
Labs: Labs Reviewed by me
[2023-06-02 15:39] VITALS: BP 99/44
[2023-06-02 15:44] VITALS: BP 161/62; BP_SYST 67
[2023-06-02] MEDS: ANCEF 10 IV (15:52)
[2023-06-02 16:53] VITALS: BP 171/57
[2023-06-02] MEDS: HEPARIN 25000 UNITS/250 ML IV (17:24)
[2023-06-02] MEDS: COUMADIN 2.5 MG PO (17:37)
[2023-06-02] MEDS: TRANDATE 150 MG PO (20:14)
[2023-06-02 23:12] VITALS: BP 136/53
[2023-06-02 23:53] LABS: APTT 79.3 Sec (23.4-35.0)
[2023-06-03] MEDS: TYLENOL 650 MG PO (02:23)
[2023-06-03 06:00] VITALS: BMI 33.7
[2023-06-03 06:20] LABS: Hematocrit 30.9 % (37.0-47.0); Hemoglobin 10.4 g/dL (12.0-16.0); Mean Corp Hgb Conc. 33.7 g/dL (33.0-37.0); Mean Corpuscular Hgb 34.2 pg (27.0-31.0); Mean Corpuscular Volume 101.6 fL (81.0-99.0); Mean Platelet Volume 9.8 fL (7.4-10.4); Platelet Count 163 10^3/uL (130-400); Red Blood Cell Count 3.04 10^6/uL (4.20-5.40); Red Cell Dist. Width 14.5 % (11.5-14.5); White Blood Cell Count 5.3 10^3/uL (4.8-10.8)
[2023-06-03 06:36] LABS: INR 1.59; PT 19.1 Sec (11.4-14.6)
[2023-06-03 06:51] LABS: ALT (SGPT) 14 U/L (0-35); AST (SGOT) 24 U/L (14-36); Albumin 3.3 g/dl (3.5-5.0); Alkaline Phosphatase 91 U/L (38-126); Blood Urea Nitrogen 32 mg/dl (7-17); Calcium 9.6 mg/dl (8.4-10.2); Carbon Dioxide 26 mmol/L (22-30); Chloride 101 mmol/L (98-107); Estimated Creatinine Clearance 14 ml/min; Glucose 109 mg/dl (70-99); Magnesium 1.9 mg/dl (1.6-2.3); Phosphorus 4.4 mg/dl (2.5-4.5); Potassium 4.2 mmol/L (3.5-5.1); Sodium 131 mmol/L (135-145); Total Bilirubin 0.8 mg/dl (0.2-1.3); Total Protein 5.9 g/dl (6.3-8.2); eGFR 11.36
[2023-06-03 07:30] VITALS: BP 115/56
[2023-06-03] MEDS: TRANDATE 150 MG PO ×2 (08:16→20:28)
[2023-06-03] MEDS: PHOSLO 2668 MG PO ×2 (08:16→17:22)
[2023-06-03] MEDS: ROCALTROL 0.25 MCG PO (08:16)
[2023-06-03] MEDS: VITAMIN D3 (cholecalciferol) 25 MCG PO (08:16)
[2023-06-03] MEDS: LIPITOR 20 MG PO (08:17)
--- NOTE | 2023-06-03 12:10 | W.PN.HOSP.TC ---
Today's Communication/Plan
-
heparin, coumadin
plan for possible dc today v tomorrow if dvt studies negative
Assessment / Plan
Assessment / Plan
Physical Exam
General: Well Developed, Well Nourished and No Apparent Distress
HEENT: NormoCephalic, Moist mucous membranes and Atraumatic
Respiratory: Clear
Cardiac: S1/S2 and Regular Rhythm; No Murmur or Rub
GI: Soft, Non Tender, Non Distended and Normal Bowel Sounds; No Organomegaly
Rectal: Deferred by Provider
Musculoskeletal: No Clubbing, No Cyanosis and No Edema
Skin: No Rash
Neuro: AO x 3 and Nonfocal/grossly intact
Psych: Calm
# Nonfunctioning fistula
# History of end-stage renal disease
-hxt of kidney ca s/p left nephrectomy
-On dialysis Tuesday, , Tuesday
-Calcitriol continued, calcium acetate continued
-permacath 05/31; tunneled catheter today 06/02 now the INR less than 2
-HD today
-vascular surgery consulted - will see in 2-4 weeks for next steps including repeat fistulogram or surgical revision; Rest fistula for 2-4 weeks
-Nephrology consulted
# Anemia of chronic disease
-Hemoglobin 11.3
-No active bleeding
-Continue to monitor
# Hyperlipidemia
-Statin
# Essential hypertension
-Labetalol continued
# History of DVT
- Heparin ggt - to coumadin
� restarted Coumadin
-eval dvt studies to assess if true bridging truly needed
#DVT prophylaxis
-hep ggt
#CODE status
-full code
Anticipated Discharge: Within 24 hours
Subjective/Interval History
-
Date of Service: June 03, 2023
No acute events, tolerated tunneled catheter yesterday 06/02
Objective Data
-
Labs:
Laboratory Results
06/03/23 06/03/23
05:23 13:00
WBC 5.3
Hgb 10.4 L
Hct 30.9 L
Plt Count 163
PT 19.1 H
INR 1.59
APTT 64.0 H Pending
Sodium 131 L
Potassium 4.2
Chloride 101
Carbon Dioxide 26
BUN 32 H
Creatinine 4.1 H*
Glucose 109 H
Calcium 9.6
Total Bilirubin 0.8
AST 24
ALT 14
Alkaline Phosphatase 91
Vital Signs:
Vital Signs
Temp Pulse Resp BP Pulse Ox
97.8 F 64 16 115/56 96
06/03/23 07:30 06/03/23 08:16 06/03/23 07:30 06/03/23 08:16 06/03/23 07:30
I&O
06/02/23 06/03/23 06/04/23
06:59 06:59 06:59
Intake Total 940 / 940 1265 / 1265
Balance 940 / 940 1265 / 1265
Review of Systems
-
History Source: Patient
All other systems: Not reviewed unless documented
Data Reviewed
-
Diagnostic Radiology: Image personally visualized and interpreted and Report Reviewed by me
Ultrasound: Image personally visualized and interpreted and Report Reviewed by me
Labs: Labs Reviewed by me
[2023-06-03 13:28] LABS: APTT 153.4 Sec (23.4-35.0)
--- NOTE | 2023-06-03 13:39 | W.PN.NEPH.PH ---
Today's Communication / Plan
-
- HD tomorrow if patient still in hospital
Assessment/Plan
-
Assessment:
LUE AVF, clotted
ESRD on HD [facility]
Anemia
HTN
DVT
Plan:
- plan for HD tomorrow per [facility] schedule if patient still in hispital
- TDC in place
- likely to restart coumadin
- BP well controlled at this time
-
-
Date of Service: June 03, 2023
CC / HPI / ROS
-
Chief Complaint:
ESRD
History of Present Illness:
ESRD TTS
hemodynamically stable
heparin gtt
Review of Systems:
no chest pain or sob
Labs
-
Labs:
WBC 5.3 10^3/uL (4.8-10.8) 06/03/23 05:23
RBC 3.04 10^6/uL (4.20-5.40) L 06/03/23 05:23
Hgb 10.4 g/dL (12.0-16.0) L 06/03/23 05:23
Hct 30.9 % (37.0-47.0) L 06/03/23 05:23
Plt Count 163 10^3/uL (130-400) 06/03/23 05:23
Sodium 131 mmol/L (135-145) L 06/03/23 05:23
Potassium 4.2 mmol/L (3.5-5.1) 06/03/23 05:23
Chloride 101 mmol/L (98-107) 06/03/23 05:23
Carbon Dioxide 26 mmol/L (22-30) 06/03/23 05:23
BUN 32 mg/dl (7-17) H 06/03/23 05:23
Creatinine 4.1 mg/dL (0.6-1.0) H* 06/03/23 05:23
eGFR 11.36 06/03/23 05:23
Glucose 109 mg/dl (70-99) H 06/03/23 05:23
Calcium 9.6 mg/dl (8.4-10.2) 06/03/23 05:23
Phosphorus 4.4 mg/dl (2.5-4.5) 06/03/23 05:23
Albumin 3.3 g/dl (3.5-5.0) L 06/03/23 05:23
Physical Exam
-
Vital Signs:
Vital Signs
Temp Pulse Resp BP Pulse Ox
97.8 F 64 16 115/56 96
06/03/23 07:30 06/03/23 08:16 06/03/23 07:30 06/03/23 08:16 06/03/23 07:30
Cardiovascular:: Regular rate and rhythm
Respiratory:: Bilateral: CTA
Lung Excursion:: Normal
Abdomen:: Nontender and Soft
Bowel Sounds:: Normal
Extremity Edema:: None: Bilateral:
Humphrey Catheter: No
--- NOTE | 2023-06-03 13:53 | PTCARENOTE ---
Pt Aptt 153.4. Per protocol drip on hold for an hour and will decrease by [address] Wells notified.
--- NOTE | 2023-06-03 14:51 | CM ---
Reviewed the chart notes and spoke with the patient and her spouse at the bedside. IMM signed and placed on the chart. The patient awaiting US of legs. CM continues to be available to patient/family and is monitoring medical plan for needs at
discharge.
Plan: Discharge plans remains home when medically stable. No anticipated needs.
[2023-06-03 15:27] VITALS: BP 133/54
[2023-06-03] MEDS: COUMADIN 5 MG PO (17:22)
[2023-06-03] MEDS: HEPARIN 25000 UNITS/250 ML IV (18:39)
[2023-06-03 21:21] LABS: APTT 86.2 Sec (23.4-35.0)
[2023-06-03 23:07] VITALS: BP 155/63
[2023-06-04 03:33] VITALS: BMI 34.0
[2023-06-04 07:49] VITALS: BP 157/71
[2023-06-04 08:25] LABS: Hematocrit 29.5 % (37.0-47.0); Hemoglobin 10.1 g/dL (12.0-16.0); Mean Corp Hgb Conc. 34.2 g/dL (33.0-37.0); Mean Corpuscular Hgb 34.1 pg (27.0-31.0); Mean Corpuscular Volume 99.7 fL (81.0-99.0); Mean Platelet Volume 9.8 fL (7.4-10.4); Platelet Count 161 10^3/uL (130-400); Red Blood Cell Count 2.96 10^6/uL (4.20-5.40); Red Cell Dist. Width 14.6 % (11.5-14.5); White Blood Cell Count 5.2 10^3/uL (4.8-10.8)
[2023-06-04 08:28] LABS: INR 1.84; PT 21.1 Sec (11.4-14.6)
[2023-06-04 09:02] LABS: ALT (SGPT) < 10 U/L (0-35); AST (SGOT) 31 U/L (14-36); Albumin 3.4 g/dl (3.5-5.0); Alkaline Phosphatase 87 U/L (38-126); Blood Urea Nitrogen 45 mg/dl (7-17); Calcium 9.6 mg/dl (8.4-10.2); Carbon Dioxide 23 mmol/L (22-30); Chloride 101 mmol/L (98-107); Estimated Creatinine Clearance 11 ml/min; Glucose 99 mg/dl (70-99); Phosphorus 4.4 mg/dl (2.5-4.5); Potassium 4.1 mmol/L (3.5-5.1); Sodium 131 mmol/L (135-145); Total Bilirubin 0.7 mg/dl (0.2-1.3); Total Protein 6.1 g/dl (6.3-8.2); eGFR 8.54
--- NOTE | 2023-06-04 09:48 | W.PN.NEPH.HD ---
Assessment
-
- patient comfortable on HD
- fistula with palpable thrill and audible
- d/c planning in place
Progress Note - Hemodialysis
-
Date of Service: June 04, 2023
Duration: 30 minutes and 3 hours
Potassium Bath: 3
Calcium Bath: 2.5
Opti-Dialyzer: 160
Ultrafiltration: Other
Blood Flow: 400
Dialysate Flow: 600
Heparin: none
EPO: none
[2023-06-04] MEDS: ROCALTROL 0.25 MCG PO (11:24)
[2023-06-04] MEDS: PHOSLO 2668 MG PO (11:24)
[2023-06-04] MEDS: VITAMIN D3 (cholecalciferol) 25 MCG PO (11:25)
[2023-06-04] MEDS: LIPITOR 20 MG PO (11:25)
[2023-06-04] MEDS: TRANDATE 150 MG PO (11:27)
--- NOTE | 2023-06-04 12:06 | W.PN.HOSP.TC ---
Addendum entered and electronically signed by Rogelio Wells MD 06/04/23 15:45:
[id number]
Original Note:
Today's Communication/Plan
-
coumadin
inr in 2 days
f/u vascular, nephro, pcp outpatient
Assessment / Plan
Assessment / Plan
Physical Exam
General: Well Developed, Well Nourished and No Apparent Distress
HEENT: NormoCephalic, Moist mucous membranes and Atraumatic
Respiratory: Clear
Cardiac: S1/S2 and Regular Rhythm; No Murmur or Rub
GI: Soft, Non Tender, Non Distended and Normal Bowel Sounds; No Organomegaly
Rectal: Deferred by Provider
Musculoskeletal: No Clubbing, No Cyanosis and No Edema
Skin: No Rash
Neuro: AO x 3 and Nonfocal/grossly intact
Psych: Calm
# Nonfunctioning fistula
# History of end-stage renal disease
-hxt of kidney ca s/p left nephrectomy
-On dialysis Tuesday, , Tuesday
-Calcitriol continued, calcium acetate continued
-permacath 05/31; tunneled catheter today 06/02 now the INR less than 2
-HD today
-vascular surgery consulted - will see in 2-4 weeks for next steps including repeat fistulogram or surgical revision; Rest fistula for 2-4 weeks
-Nephrology consulted
# Anemia of chronic disease
-Hemoglobin 11.3
-No active bleeding
-Continue to monitor
# Hyperlipidemia
-Statin
# Essential hypertension
-Labetalol continued
# History of DVT
back on coumadin
Repeat DVT study negative
INR on 06/06
#DVT prophylaxis
-coumadin
#CODE status
-full code
More than 30 minutes spent in discharge including
Final examination of the patient
Summarizing hospital stay
Instructions for continuing care to all relevant caregivers
Preparation of discharge records, prescriptions, and referral forms
Total time spent (35 in minutes):
Anticipated Discharge: Today
Subjective/Interval History
-
Date of Service: June 04, 2023
No acute events
Objective Data
-
Labs:
Laboratory Results
06/04/23
07:25
WBC 5.2
Hgb 10.1 L
Hct 29.5 L
Plt Count 161
PT 21.1 H
INR 1.84
Sodium 131 L
Potassium 4.1
Chloride 101
Carbon Dioxide 23
BUN 45 H
Creatinine 5.2 H*
Glucose 99
Calcium 9.6
Total Bilirubin 0.7
AST 31
ALT < 10
Alkaline Phosphatase 87
Vital Signs:
Vital Signs
Temp Pulse Resp BP Pulse Ox
97.6 F 69 18 124/62 98
06/04/23 07:49 06/04/23 11:27 06/04/23 07:49 06/04/23 11:27 06/04/23 07:49
I&O
06/03/23 06/04/23 06/05/23
06:59 06:59 06:59
Intake Total 1265 / 1265 1080 / 1080
Balance 1265 / 1265 1080 / 1080
Review of Systems
-
History Source: Patient
All other systems: Not reviewed unless documented
Data Reviewed
-
Diagnostic Radiology: Image personally visualized and interpreted and Report Reviewed by me
Ultrasound: Image personally visualized and interpreted and Report Reviewed by me
Labs: Labs Reviewed by me
--- NOTE | 2023-06-04 13:01 | CM ---
CM following re: discharge planning.
Reviewed pt's chart, met with pt.
Discharge order noted. Pt is aware, expressed her agreement with discharge and she stated her will transport her home. IMM reviewed yesterday, pt is aware of Medicare Rights.
Pt reports she lives with , independent with functional ability and she does not need any after care VN services.
D/C plan: home no needs. to transport.
--- NOTE | 2023-06-13 16:16 | W.DS.TRANS ---
DC Summary - Payroll Representative
-
Discharge Instructions:
Discharge Diagnosis/Procedures
# Nonfunctioning fistula
# History of end-stage renal disease
Diet Low Cholesterol,Low Fiber,2 Gram Sodium
Activity As tolerated
Blood Work INR on 06/06 with your respected facility who you
regularly check your INRs
Other labs as per renal
Instructions:
Stand-Alone Forms:
Changes to Home Medications: No
Discharge Medications:
DC Medications w/original date entered in [facility]
warfarin 5 mg tablet (Jantoven) 5 mg PO MOWEFR Blood Clot Prevention/Tx 09/30/15
calcitriol 0.25 mcg capsule 0.25 mcg PO DAILY Kidney Disease 05/29/21
acetaminophen 500 mg tablet (Tylenol Extra Strength) 1,000 mg PO TIDPRN PRN mild pain 03/24/22
atorvastatin 20 mg tablet (Lipitor) 20 mg PO DAILY High Cholesterol 03/24/22
labetalol 300 mg tablet 150 mg PO BID Blood Pressure 03/24/22
therapeutic multivitamin 1 tab PO DAILY Supplement ##0 03/24/22
warfarin 2.5 mg tablet 2.5 mg PO SUTUTHSA Blood Clot Prevention/Tx 03/24/22
calcium acetate 667 mg tablet 2,668 mg PO BID Supplement 05/30/23
cholecalciferol (vitamin D3) 25 mcg (1,000 unit) tablet (Vitamin D3) 25 mcg PO DAILY Supplement 05/30/23
Home Medication Changes
na
Pending Results: No
== END 2023-06-04 14:28 | disposition home or self-care (01) | DRG 673 ==
LOC: 2 NORTH 15:01
PROVIDERS: Physician Assistant; Radiology Diagnostic Radiology; Radiology Vascular & Interventional Radiology; Registered Nurse; Specialist; ADMITTING PHYSICIAN Internal Medicine; ATTENDING PHYSICIAN Internal Medicine; CONSULT PHYSICIAN Student in an Organized Health Care Education/Training Program; EMERGENCY PHYSICIAN Emergency Medicine; FAMILY PHYSICIAN Family Medicine; OTHER PHYSICIAN Surgery Vascular Surgery
PROC: 05HM33Z Insertion of Infusion Device into Right Internal Jugular Vein, Percutaneous Approach (ICD-10-PCS; 2023-05-31)
PROC: 5A1D70Z Performance of Urinary Filtration, Intermittent, Less than 6 Hours Per Day (ICD-10-PCS; 2023-05-31)
PROC: 0JH63XZ Insertion of Tunneled Vascular Access Device into Chest Subcutaneous Tissue and Fascia, Percutaneous Approach (ICD-10-PCS; 2023-06-02)
DX: T82.41XA Breakdown (mechanical) of vascular dialysis catheter, initial encounter (principal); N18.6 End stage renal disease; C64.9 Malignant neoplasm of unspecified kidney, except renal pelvis; I12.0 Hypertensive chronic kidney disease with stage 5 chronic kidney disease or end stage renal disease; E87.1 Hypo-osmolality and hyponatremia; E11.22 Type 2 diabetes mellitus with diabetic chronic kidney disease; Z86.718 Personal history of other venous thrombosis and embolism; Z79.01 Long term (current) use of anticoagulants; Z99.2 Dependence on renal dialysis; D63.1 Anemia in chronic kidney disease; E78.00 Pure hypercholesterolemia, unspecified; Y82.8 Other medical devices associated with adverse incidents
CPT/HCPCS: 36558; 76937; 77001; 80048; 80053; 83735; 84100; 85025; 85027; 85610; 85730; 87070; 93970; 93990; 99152; 99153; 99284; C1750; G0257; P9047; Q5106

== ENCOUNTER 2023-07-18 05:55 | Day surgery (SDC) | payer MEDICARE, OTHER, SELFPAY ==
[2023-07-18] VITALS (11 sets, daily range): BP systolic 112–133; BP diastolic 48–58; BMI 33.7
[2023-07-18] MEDS: NSS 500 IV (06:30)
[2023-07-18 06:47] LABS: Glucose - Point of Care 149 mg/dl (70-99)
[2023-07-18 06:49] LABS: Hematocrit 34.1 % (37.0-47.0); Hemoglobin 11.3 g/dL (12.0-16.0); Mean Corp Hgb Conc. 33.1 g/dL (33.0-37.0); Mean Corpuscular Volume 99.7 fL (81.0-99.0); Mean Platelet Volume 9.5 fL (7.4-10.4); Platelet Count 212 10^3/uL (130-400); Red Blood Cell Count 3.42 10^6/uL (4.20-5.40); Red Cell Dist. Width 14.5 % (11.5-14.5); White Blood Cell Count 7.9 10^3/uL (4.8-10.8)
[2023-07-18 06:56] LABS: INR 2.47; PT 26.7 Sec (11.4-14.6)
[2023-07-18 06:57] LABS: APTT 41.1 Sec (23.4-35.0)
--- NOTE | 2023-07-18 07:02 | W.SUR.PREOP ---
Pre-Operative Surgical Note
-
I have examined this patient prior to the performance of the scheduled procedure.
The patient's condition is unchanged from the time of the current History and
Physical and the patient is able to undergo the scheduled procedure.
[2023-07-18 07:19] LABS: Blood Urea Nitrogen 72 mg/dl (7-17); Calcium 9.9 mg/dl (8.4-10.2); Carbon Dioxide 24 mmol/L (22-30); Chloride 95 mmol/L (98-107); Estimated Creatinine Clearance 11 ml/min; Glucose 149 mg/dl (70-99); Potassium 4.3 mmol/L (3.5-5.1); Sodium 132 mmol/L (135-145); eGFR 8.11
--- NOTE | 2023-07-18 08:08 | W.SUR.POST ---
Surgical Immediate Post Op
Note
Pre Op Diagnosis: ESRD
Post Op Diagnosis: ESRD
Procedure Performed: Diagnostic left upper extremity fistulogram and central venogram
Primary Surgeon: Kael Miles MD
Secondary Surgeons: N/A
Anesthesia: MAC
Estimated Blood Loss: 2ml
Fluids: See anesthesia flow sheet
Drains/Shunts: N/A
Specimens/Cultures: N/A
Doppler/Duplex/Angio (Y/N): Y
Complications: None
Operative Findings: No area of significant stenosis amenable to endovascular invention, likely will require superficialization of fistula for better access at HD
[2023-07-18 08:37] LABS: Glucose - Point of Care 142 mg/dl (70-99)
--- NOTE | 2023-07-18 09:00 | OR.RPT ---
Operative Report
Operative Report
PROCEDURE DATE: 07/18/2023
Preoperative diagnosis:
1. End-stage renal disease on hemodialysis.
2. Difficulty with arteriovenous fistula left upper extremity cannulation.
Postoperative diagnosis: Same
Procedure:
1. Left upper extremity fistulogram.
2. Central venogram.
Surgeon: Jd
Weaver Hand: None
Complications: None
Anesthesia: Local, sedation
Fluoroscopy:
1.5 min
11 mGy
2.33 Gy.cm2
Indications for procedure:
End-stage renal disease on hemodialysis. Difficulty with cannulation of AV fistula. Therefore discussed diagnostic, possible therapeutic fistulogram. Risk/benefits/alternatives were also discussed. Patient understood all wish to proceed.
Description of procedure:
Patient was identified, brought to the operating room. Placed on the table in the supine position. After the adequate administration of anesthesia, the patient was prepped and draped in the standard surgical fashion. A standard preoperative
timeout was undertaken and everybody was in agreement with the plan.
Left upper extremity brachiocephalic arteriovenous fistula was cannulated in the distal upper arm just proximal to the antecubital fossa and a central facing direction using a micropuncture kit under direct duplex ultrasound guidance. A 4 [place]
sheath was then advanced over a 0.035 inch wire. Left upper extremity fistulogram and central venogram imaging was obtained. This demonstrated patent left upper extremity upper arm fistula outflow vein. There was severe tortuosity with knuckle
like tortuosity in tandem and the outflow and a moderate collateral filling as well. No stenosis was identified throughout this region. More centrally the vein was widely patent. Next I used a glide catheter which I advanced over my 0.035 inch
wire to the central cephalic vein. Central venography demonstrated patent cephalic arch with some luminal irregularities but no significant stenosis. Subclavian vein and left brachiocephalic vein/SVC was patent without any significant stenosis.
At this point I withdrew my catheter and wire. I then compressed the fistula and performed reflux fistulogram to allow contrast to reflux across the anastomosis. This demonstrated widely patent anastomosis. No inflow stenosis. At this point I
was very satisfied. Of note on duplex imaging that I performed intraoperatively, I did note in addition to the severe tortuosity, there is significant depth of the cephalic vein outflow in the upper arm from the mid to distal upper arm all the way
proximally to the proximal upper arm. Patient likely would benefit from superficialization.
At this point a 4-0 Monocryl pursestring stitch was placed around the sheath entry site and was tied down as the sheath was withdrawn. Manual pressure was also applied. Hemostasis was fully achieved.
The patient tolerated procedure well.
== END 2023-07-18 10:15 | disposition home or self-care (01) ==
LOC: CATH 05:55
PROVIDERS: ATTENDING PHYSICIAN Surgery Vascular Surgery; FAMILY PHYSICIAN Family Medicine
DX: T82.898A Other specified complication of vascular prosthetic devices, implants and grafts, initial encounter (principal); Y83.2 Surgical operation with anastomosis, bypass or graft as the cause of abnormal reaction of the patient, or of later complication, without mention of misadventure at the time of the procedure; E11.22 Type 2 diabetes mellitus with diabetic chronic kidney disease; I12.0 Hypertensive chronic kidney disease with stage 5 chronic kidney disease or end stage renal disease; N18.6 End stage renal disease; Z99.2 Dependence on renal dialysis; Q60.0 Renal agenesis, unilateral; Z85.528 Personal history of other malignant neoplasm of kidney
CPT/HCPCS: 36901; 76937; 80048; 82962; 85027; 85610; 85730; 86850; 86900; 86901; 93005; C1769; C1894

== ENCOUNTER 2023-07-27 11:00 | Day surgery (SDC) | payer MEDICARE, OTHER, SELFPAY ==
[2023-07-27] VITALS (8 sets, daily range): BP systolic 132–154; BP diastolic 44–59
[2023-07-27] MEDS: BACTROBAN NASAL 1 GRAM NASAL (11:58)
[2023-07-27] MEDS: PERIDEX 0.12% ORAL RINSE 15 ML PO (12:01)
[2023-07-27 12:25] LABS: Hematocrit 32.8 % (37.0-47.0); Hemoglobin 10.9 g/dL (12.0-16.0); Mean Corp Hgb Conc. 33.2 g/dL (33.0-37.0); Mean Corpuscular Hgb 33.6 pg (27.0-31.0); Mean Corpuscular Volume 101.2 fL (81.0-99.0); Mean Platelet Volume 9.6 fL (7.4-10.4); Platelet Count 180 10^3/uL (130-400); Red Blood Cell Count 3.24 10^6/uL (4.20-5.40); White Blood Cell Count 6.6 10^3/uL (4.8-10.8)
[2023-07-27 12:39] LABS: INR 1.41; PT 17.4 Sec (11.4-14.6)
[2023-07-27 12:40] LABS: APTT 32.6 Sec (23.4-35.0)
[2023-07-27 12:47] LABS: Blood Urea Nitrogen 49 mg/dl (7-17); Carbon Dioxide 27 mmol/L (22-30); Chloride 95 mmol/L (98-107); Estimated Creatinine Clearance 14 ml/min; Glucose 131 mg/dl (70-99); Potassium 4.7 mmol/L (3.5-5.1); Sodium 133 mmol/L (135-145); eGFR 10.97
--- NOTE | 2023-07-27 15:35 | W.SUR.POST ---
Surgical Immediate Post Op
Note
Pre Op Diagnosis: ESRD
Post Op Diagnosis: ESRD
Procedure Performed: Superficialization of left upper extremity AV fistula
Primary Surgeon: Jd
Assist: Taylor VERGARA
Anesthesia: LMA
Estimated Blood Loss: 60 cc
Fluids: See anesthesia flowsheet
Drains/Shunts: None
Specimens/Cultures: None
Doppler/Duplex/Angio (Y/N): Y
Complications: None
Operative Findings: + thrill
--- NOTE | 2023-07-27 15:43 | W.[place]-PDMP ---
[place]PD[place]
-
Checked the [place]- Pres[place] Drug Monitoring Program website, no red flags identified; safe to proceed with prescription.
[2023-07-27 15:54] LABS: Glucose - Point of Care 90 mg/dl (70-99)
[2023-07-27] MEDS: DILAUDID 0.25 MG IV (16:00)
[2023-07-27] MEDS: NSS 500 IV (16:02)
--- NOTE | 2023-07-27 16:07 | OR.RPT ---
Operative Report
Operative Report
PROCEDURE DATE: 07/27/2023
Preoperative diagnosis: End-stage renal disease on hemodialysis, status post left upper extremity brachiocephalic arteriovenous fistula creation.
Postoperative diagnosis: Same
Procedure: Superficialization of left upper extremity brachiocephalic arteriovenous fistula.
Surgeon: Jd
Pot Filler: LAMONT Vazquez required for all aspects of procedure including traction/countertraction, assistance with following of suture line, assistance with closure.
Complications: None
Anesthesia: General
Indications for procedure:
End-stage renal disease on hemodialysis, status post left brachiocephalic arteriovenous fistula creation. However, the vein was noted to be significantly deep in the upper arm and therefore difficulty attempting cannulation. Discussed procedure of
superficialization of the vein. Risk/benefits/alternatives were also discussed. Patient understood all wish to proceed.
Description of procedure:
Patient was identified brought to the operating room placed on the table in supine position. After the adequate administration of anesthesia she was prepped and draped in the standard surgical fashion. A standard preoperative timeout was
undertaken and everybody was in agreement the plan. A longitudinal incision was made in the upper arm overlying the course of the cephalic vein (I had marked the skin with an ultrasound prior to prepping and draping). This incision was carried
through skin subcutaneous tissue with the electrocautery. Identified the cephalic vein initially near the antecubital fossa. It was enlarged here. It was just beyond an aneurysmal segment there was almost a slightly aneurysmal second segment here
which knuckle downward. The vein then ran deep and parallel to the skin but was fairly at a depth here. I continued to mobilize the superficial tissues with electrocautery and sharp dissection and then this allowed full mobilization of the entire
cephalic vein. Any branches were ligated between silk ties and divided. As such I was able to mobilize the entirety of the cephalic vein in the upper arm. The vein had an excellent thrill and had nicely distended throughout its course. It was
well maturing vein. There were a couple areas of slight twisting but nothing that was significantly resulting in stenosis. At this point I carefully achieved full hemostasis throughout the mobilization bed. Once I confirmed hemostasis I then
irrigated copiously. I then closed the deeper tissues with a combination of 2-0 Vicryl and 3-0 Vicryl interrupted suture. While doing this I maintained the vein and the superficial location (closing the deeper tissues deep to/under the vein). At
this point, the skin edges were mobilized with the electrocautery (subcutaneous edges). We then used a 4-0 Monocryl running subcuticular stitch to close the skin over the superficial lysed vein. Dermabond was applied. The patient tolerated the
procedure well. There is an excellent thrill through the fistula throughout the procedure.
== END 2023-07-27 17:45 | disposition home or self-care (01) ==
LOC: CATH 11:00
PROVIDERS: ATTENDING PHYSICIAN Surgery Vascular Surgery; FAMILY PHYSICIAN Family Medicine
DX: I12.0 Hypertensive chronic kidney disease with stage 5 chronic kidney disease or end stage renal disease (principal); E11.22 Type 2 diabetes mellitus with diabetic chronic kidney disease; N18.6 End stage renal disease; Z99.2 Dependence on renal dialysis
CPT/HCPCS: 36832; 80048; 82962; 85027; 85610; 85730; 93005

== ENCOUNTER → 2023-09-21 13:21 | Outpatient (REF) | payer MEDICARE, OTHER, SELFPAY | LOC: RAD 13:21 | PROVIDERS: ATTENDING PHYSICIAN Surgery Vascular Surgery; FAMILY PHYSICIAN Family Medicine | DX: I77.0 Arteriovenous fistula, acquired (principal) | CPT/HCPCS: 93990 ==

== ENCOUNTER → 2023-10-07 12:17 | Outpatient (REF) | payer MEDICARE, OTHER, SELFPAY ==
[2023-10-07 12:58] LABS: INR 2.53; PT 27.1 Sec (11.4-14.6)
== END ==
LOC: RADI 12:17
PROVIDERS: ATTENDING PHYSICIAN Physician Assistant; FAMILY PHYSICIAN Family Medicine
DX: Z49.01 Encounter for fitting and adjustment of extracorporeal dialysis catheter (principal); N18.6 End stage renal disease; Z79.01 Long term (current) use of anticoagulants
CPT/HCPCS: 36415; 36589; 85610